=== PATIENT | male | born 1950 | race Caucasian/White ===

== ENCOUNTER 2020-08-22 11:21 | Observation (INO) ==
[2020-08-22 12:10] LABS: Basophils % 0.3 % (0.0-0.8); Eosinophils # 0.1 10*3/uL (0.0-0.87); Eosinophils % 0.5 % (0.00-10.9); Hematocrit 38.1 VOL% (42.0-52.0); Hemoglobin 12.4 GM/DL (14.0-18.0); Immature Granulocytes % 0.4 %; Immature Granulocytes Absolute 0.04 #; Lymphocytes # 0.8 10*3/uL (1.4-4.0); Lymphocytes % 7.2 % (21.2-54.2); Mean Corpuscular HGB Conc 32.5 GM/DL (32-36); Mean Corpuscular Volume 93.8 FL (87-102); Mean Platelet Volume 10.5 FL (9.6-12.0); Monocytes % 9.7 % (1.7-12.7); Neutrophils % 81.9 % (38.7-73.9); Platelet Count 141 T/CUMM (130-400); Red Blood Count 4.06 MC/CUMM (3.8-5.5); Red Cell Distribution Width 12.1 % (9.3-17.3); White Blood Count 10.8 T/CUMM (4-12)
[2020-08-22 13:22] LABS: Calcium 8.5 MG/DL (8.5-10.1); Osmolality,Calculated 276.7 MOS/KG (273-304); Potassium 4.1 MMOL/L (3.5-5.1)
[2020-08-22] MEDS ORDERED: fentaNYL 100 MCG/2 ML VIAL ONE (13:36)
[2020-08-22] MEDS ORDERED: MIDAZOLAM 2 MG/2 ML VIAL ONE (13:36)
[2020-08-22] MEDS ORDERED: propofoL 200 MG/20 ML VIAL IV ONE (13:37)
[2020-08-22] MEDS ORDERED: LIDOCAINE 2% 5 ML VIAL ONE (13:37)
[2020-08-22] MEDS ORDERED: ACETAMINOPHEN 325 MG TABLET PO PRN (13:45)
[2020-08-22] MEDS ORDERED: ONDANSETRON 4 MG/2 ML VIAL IV PRN ×2 (13:45→14:37)
[2020-08-22] MEDS ORDERED: CLINDAMYCIN INJ 900 MG/50 ML PREMIX IV STA (13:47)
[2020-08-22] MEDS ORDERED: BUPIVACAINE MPF 0.25% 30 ML VIAL ONE (13:48)
[2020-08-22] MEDS ORDERED: LIDOCAINE 1% 20 ML VIAL ONE (13:48)
[2020-08-22] MEDS ORDERED: LACTATED RINGERS 1,000 ML IV ONE (14:09)
[2020-08-22] MEDS: HYDROmorphone 2 MG/1 ML VIAL IV PRN ×4 (14:41→15:01)
[2020-08-22] MEDS ORDERED: SILDENAFIL 20 MG TABLET PO PRN (15:54)
[2020-08-22] MEDS: LACTATED RINGERS 1,000 ML IV SCH (16:01)
[2020-08-22] MEDS: ROSUVASTATIN 10 MG TABLET PO SCH (21:19)
[2020-08-22] MEDS: DOCUSATE SODIUM 100 MG CAPSULE PO PRN (21:19)
[2020-08-22] MEDS: POLYETHYLENE GLYCOL POWDER 17 GM PACK PO PRN (21:20)
[2020-08-22] MEDS: METOPROLOL SUCCINATE XL 25 MG TABLET PO SCH (21:22)
[2020-08-22] MEDS: MORPHINE 2 MG/1 ML SYRINGE IV PRN (21:26)
[2020-08-22] MEDS: CLINDAMYCIN INJ 900 MG/50 ML PREMIX IV SCH (21:38)
[2020-08-23] MEDS: MORPHINE 2 MG/1 ML SYRINGE IV PRN ×3 (01:54→18:57)
[2020-08-23] MEDS: LACTATED RINGERS 1,000 ML IV SCH ×4 (01:57→21:46)
[2020-08-23] MEDS: CLINDAMYCIN INJ 900 MG/50 ML PREMIX IV SCH ×3 (05:46→21:46)
[2020-08-23] MEDS: DOCUSATE SODIUM 100 MG CAPSULE PO PRN ×2 (08:50→21:44)
[2020-08-23] MEDS: ESCITALOPRAM 10 MG TABLET PO SCH (08:50)
[2020-08-23] MEDS: ALPRAZolam 0.5 MG TABLET PO SCH (08:50)
[2020-08-23] MEDS: METOPROLOL SUCCINATE XL 25 MG TABLET PO SCH ×2 (08:50→21:45)
[2020-08-23] MEDS: POLYETHYLENE GLYCOL POWDER 17 GM PACK PO PRN (08:50)
[2020-08-23] MEDS: PANTOPRAZOLE 40 MG TABLET PO SCH (08:50)
[2020-08-23] MEDS: ROSUVASTATIN 10 MG TABLET PO SCH (21:45)
[2020-08-24] MEDS: POLYETHYLENE GLYCOL POWDER 17 GM PACK PO PRN ×2 (04:23→09:18)
[2020-08-24] MEDS: CLINDAMYCIN INJ 900 MG/50 ML PREMIX IV SCH (05:10)
[2020-08-24] MEDS: LACTATED RINGERS 1,000 ML IV SCH (05:15)
[2020-08-24 07:50] VITALS: BP 110/59
[2020-08-24] MEDS: DOCUSATE SODIUM 100 MG CAPSULE PO PRN (09:17)
[2020-08-24] MEDS: PANTOPRAZOLE 40 MG TABLET PO SCH (09:17)
[2020-08-24] MEDS: ALPRAZolam 0.5 MG TABLET PO SCH (09:17)
[2020-08-24] MEDS: ESCITALOPRAM 10 MG TABLET PO SCH (09:17)
[2020-08-24] MEDS: METOPROLOL SUCCINATE XL 25 MG TABLET PO SCH (09:17)
== END 2020-08-24 11:00 | disposition home health service (06) ==
LOC: N.3E 11:21 → N.ED 11:21 → N.3E 14:02
PROVIDERS: ADMIT Surgery; ATTEND Surgery